=== PATIENT | male | born 1975 | race Caucasian/White ===

== ENCOUNTER 2016-09-19 11:58 | Emergency (ER) | payer BC, OTHER ==
[~2016-09-19] VITALS: Ht 177.8 cm; Wt 81.6 kg
[2016-09-19] MEDS ORDERED: TETANUS,DIPTH,PERTUSS P/F (BOOSTRIX) 0.5 ML VIAL IM STA (12:40)
[2016-09-19] MEDS ORDERED: LIDOCAINE/EPI 2% 1:100,00 (XYLOCAINE) 20 ML VIAL INJ ONE (12:45)
--- NOTE | 2016-09-19 12:50 | ED Lower Extremity ---
General Chief Complaint: Foreign Body Stated Complaint: METAL IN LEFT LEG Nursing Triage Note: PT BELIEVES HE HAS A PIECE OF METAL IN HIS MEDIAL L THIGH. APPROX 1 INCH LAC TO AFFECTED AREA NOTED. Nursing Sepsis Screen: No Definite Risk Source: patient, family (daughter) Exam Limitations: no limitations History of Present Illness Time seen by provider: 12:43 Initial Comments 41 yo male patient presents to the ED with c/o a piece of metal in the left thigh. denies numbness or tingling. Denies weakness. Location Injury Occurred: home Onset: just prior to arrival Pain/Injury Location: right thigh Method of Injury: other (a small piece of metal broke off causing lac to the left leg) Allergies and Home Medications Allergies Coded Allergies: No Known Drug Allergies (Unverified , 09/19/16) Home Medications Cephalexin 500 Mg Capsule, 500 MG PO TID for 7 Days, #21 Ref 0 Prescribed by: SCOTT BARRERA on 09/19/16 1325 Hydrocodone/Acetaminophen 1 Each Tablet, 1 EACH PO Q4H PRN for PAIN, #30 Ref 0 Prescribed by: SCOTT BARRERA on 09/19/16 1515 Constitutional: no symptoms reported Musculoskeletal: see HPI, No joint pain, other (left thigh pain) Skin: see HPI Psychiatric/Neurological: Denies Numbness, Denies Paresthesia, Denies Tingling , Denies Weakness All Other Systems Reviewed Negative Unless Noted: Yes (Negative excepted noted.) Past Djswxbm-Sqquvx-Lmyyga Hx Patient Social History Alcohol Use: Occasionally Uses Recreational Drug Use: No Smoking Status: Never a Smoker 2nd Hand Smoke Exposure: No Recent Foreign Travel: No Contact w/Someone Who Travel: No Recent Infectious Disease Expo: No Recent Hopitalizations: No Immunizations Up To Date Tetanus Booster (TDap): Unknown Seasonal Allergies Seasonal Allergies: No Surgeries HX Surgeries: No Respiratory Hx Respiratory Disorders: No Cardiovascular Hx Cardiac Disorders: No Neurological Hx Neurological Disorders: No Genitourinary Hx Genitourinary Disorders: No Gastrointestinal Hx Gastrointestinal Disorders: No Musculoskeletal Hx Musculoskeletal Disorders: No Reviewed Nursing Assessment Reviewed/Agree w Nursing PMH: Yes Family Medical History Significant Family History: No Pertinent Family Hx Physical Exam Vital Signs Vital Sign - Last 12Hours 09/19/16 12:15 Temp 98.2 Pulse 78 Resp 16 B/P (MAP) 157/102 Pulse Ox 97 O2 Delivery Room Air Capillary Refill : Less Than 3 Seconds General Appearance: WD/WN, no apparent distress Cardiovascular: regular rate, rhythm, no murmur Respiratory: lungs clear, normal breath sounds, no respiratory distress Legs: left leg soft tissue tenderness, left leg other (1 cm lac left distal anterior thigh w/o active bleeding.) Knees: bilateral knee non-tender, bilateral knee normal inspection, bilateral knee normal range of motion, bilateral knee no evidence of injury Ankles: bilateral ankle non-tender, bilateral ankle normal inspection, bilateral ankle normal range of motion, bilateral ankle no evidence of injury Neurologic/Tendon: normal sensation, normal motor functions, normal tendon functions, responds to pain, no evidence tendon injury Neurologic/Psychiatric: no motor/sensory deficits, alert, normal mood/affect, oriented x 3 Skin: normal color, warm/dry, other (1 cm lac left distal anterior thigh w/o active bleeding.) I&D : Site: left distal thigh Blade Size: 11 I & D Procedure: betadine prep, sterile drapes applied, sterile dressing applied Progress A total of 8 cc of 2% lidocaine with epinephrine infused approximately 4 centimeters distal to the laceration site of the left thigh. Curved hemostats used to bluntly dissect down to the muscle. Fluoroscopy was used to assist in locating the foreign body. Foreign-body grabbed with curved hemostats and removed in its entirety. Wound irrigated with sterile water. 4-0 Prolene used to loosely reapproximate the skin edges of the proximal laceration with 1 simple suture. 4-0 Prolene used to reapproximate skin edges the distal incision in a modified running fashion. Blood loss minimal. Patient tolerated the procedure well. Wounds dressed with 4 x 4 gauze and a 6 inch Ted wrap. Progress/Results/Core Measures Results/Orders My Orders Orders - SCOTT BARRERA Femur, Left, 2 Views (09/19/16 12:36) Dipht,Pertuss(Acell),Tet Adult (Boostrix (09/19/16 12:40) Lidocaine/Epi 2% 1:100,000 (Xylocaine/Ep (09/19/16 12:45) Fluoroscopy (09/19/16 ) Medications Given in ED Current Medications Medications Dose Ordered Sig/José Antonio Route Start Time Stop Time Status Last Admin Dose Admin Lidocaine/ Epinephrine 20 ml ONCE ONCE INJ 09/19/16 12:45 09/19/16 12:46 DC 09/19/16 13:40 20 ML Vital Signs/I&O Vital Sign - Last 12Hours 09/19/16 12:15 Temp 98.2 Pulse 78 Resp 16 B/P (MAP) 157/102 Pulse Ox 97 O2 Delivery Room Air Blood Pressure Mean: 120 Diagnostic Imaging Diagonstic Imaging: Xray Plain Films/CT/US/NM/MRI: leg Comments FINDINGS: There is a metallic foreign body measuring 1 cm seen in the anteromedial aspect of the distal left thigh about 12 cm above the knee joint. Soft tissue air adjacent to it is seen. The small amount of soft tissue air adjacent to it is related to the recent injury. The proximal and distal joints appear unremarkable. There is no fracture seen. IMPRESSION: 1 cm metallic foreign body in the anterior medial aspect of the distal thigh. Dictated by: Dictated on workstation # [id number] Reviewed: Reviewed by Me (radiology report reviewed by me) Diagonstic Imaging: Xray Plain Films/CT/US/NM/MRI: other (FLUOROSCOPY) Comments Discussion: Fluoroscopic support was provided during removal of a small foreign body within the left thigh soft tissues. The initial image demonstrates a small triangular shaped foreign body. The followup image demonstrates no residual foreign body. Fluoroscopy time: 110 seconds. Impression: 1. Intraprocedural foreign body removal from the left thigh soft tissues. Dictated by: Dictated on workstation # [id number] Reviewed: Reviewed by Me (radiology report reviewed by me) Departure Communication Progress Notes Patient seen, evaluated, foreign body removal performed, as well as wound repair performed. Diagnostic findings discussed with the patient. Plan for discharge to home. Patient given prescriptions for Keflex and hydrocodone 5/ 325 mg. Patient ambulated from the emergency department without difficulty. Patient case discussed with Jn Lawson, he agrees with the plan of care. Impression Impression: Primary Impression: Foreign body in lower extremity Qualified Codes: S80.852A - Superficial foreign body, left lower leg, initial encounter Disposition: HOME, SELF-CARE Condition: Improved Departure-Patient Inst. Decision time for Depature: 13:22 Referrals: NO,LOCAL PHYSICIAN (PCP/Family) Primary Care Physician Patient Instructions: Laceration Repair With Stitches (DC), Wound Care (DC) Add. Discharge Instructions: All discharge instructions reviewed with patient and/or family. Voiced understanding. Medications as instructed. Tylenol Extra Strength over-the- counter as directed for pain. Ibuprofen 800 mg by mouth every 8 hours as needed for pain. Elevate the left leg on pillows above the level of the heart. Ice pack for 20 minute intervals as needed for 2-3 days, then heating pad or pack if needed. Tomorrow morning remove the bandage, shower with antibacterial soap, pat dry, apply triple antibiotics ointment twice daily for 3 days and cover with a bandage. Return to the emergency department in 10 days for suture removal. Follow-up with your family practitioner for recheck if needed. Return to the emergency department immediately for worsened pain, redness, fever , drainage, or any other concerns. Scripts Hydrocodone/Acetaminophen (Hydrocodon -Acetaminophen 5-325) 1 Each Tablet 1 EACH PO Q4H Y for PAIN, #30 TAB 0 Refills Prov: SCOTT BARRERA 09/19/16 Cephalexin (Cephalexin) 500 Mg Capsule 500 MG PO TID for 7 Days, #21 CAP 0 Refills Prov: SCOTT BARRERA 09/19/16 Work/School Note: [employer] SCOTT BARRERA Sep 19, 2016 12:50
[2016-09-19] MEDS ORDERED: CEPH500C PO (13:25)
--- NOTE | 2016-09-19 13:34 | Diagnostic Imaging Report ---
EXAMINATION: Two views of the left femur. INDICATION: Foreign body. FINDINGS: There is a metallic foreign body measuring 1 cm seen in the anteromedial aspect of the distal left thigh about 12 cm above the knee joint. Soft tissue air adjacent to it is seen. The small amount of soft tissue air adjacent to it is related to the recent injury. The proximal and distal joints appear unremarkable. There is no fracture seen. IMPRESSION: 1 cm metallic foreign body in the anterior medial aspect of the distal thigh. Dictated by: Dictated on workstation # [id number]
[2016-09-19] MEDS ORDERED: HYDR-3812 PO (15:15)
[2016-09-19 15:33] VITALS: BP 133/86
--- NOTE | 2016-09-19 16:22 | Diagnostic Imaging Report ---
Indication: Left leg pain and swelling, foreign body. Discussion: Fluoroscopic support was provided during removal of a small foreign body within the left thigh soft tissues. The initial image demonstrates a small triangular shaped foreign body. The followup image demonstrates no residual foreign body. Fluoroscopy time: 110 seconds. Impression: 1. Intraprocedural foreign body removal from the left thigh soft tissues. Dictated by: Dictated on workstation # [id number]
== END 2016-09-19 15:33 | disposition home or self-care (01) ==
LOC: EDUNIT# 11:58 → ER 12:01
DX: S70.352A Superficial foreign body, left thigh, initial encounter (principal); W45.8XXA Other foreign body or object entering through skin, initial encounter; Y92.009 Unspecified place in unspecified non-institutional (private) residence as the place of occurrence of the external cause
CPT/HCPCS: 12031; 73552; 90471; 90715